=== PATIENT | male | born 2000 | race Caucasian/White ===

== ENCOUNTER 2018-11-01 23:04 | Emergency (ER) | payer BC ==
[~2018-11-01] VITALS: Ht 188 cm; Wt 81.8 kg
[2018-11-01] MEDS ORDERED: ZOFR4TAB16 PO (23:20)
[2018-11-01] MEDS ORDERED: METOCLOPRAMIDE INJ 10MG/2ML VIAL (J2765) IV ONE (23:45)
[2018-11-01] MEDS ORDERED: GI COCKTAIL 50ML BTL(HYOSCYAMINE/MAALOX/LIDOCAINE VISCOUS)(1:3:1) PO ONE (23:45)
[2018-11-01] MEDS ORDERED: ACETAMINOPHEN 500 MG TAB PO ONE (23:45)
[2018-11-01] MEDS ORDERED: NS 1,000 ML IV ONE (23:45)
[2018-11-02 00:16] LABS: BASO % 0.3 % (0.0-1.0); HEMATOCRIT 46.6 % (42.0-52.0); HEMOGLOBIN 15.8 g/dl (13.5-17.5); LYMPH # 1.1 10^3/uL (1.5-6.5); LYMPH % 16.5 % (24.0-44.0); MEAN CORPUSCULAR HEMOGLOBIN 30.4 pg (27.0-33.0); MEAN CORPUSCULAR HGB CONC 33.9 g/dl (32.0-36.5); MEAN CORPUSCULAR VOLUME 89.6 fl (80.0-96.0); MONO # 0.8 10^3/uL (0.0-0.8); MONO % 11.8 % (0.0-5.0); NEUTROPHILS # 4.9 10^3/uL (1.8-7.7); NEUTROPHILS % 71.1 % (36.0-66.0); PLATELET COUNT, AUTOMATED 165 10^3/uL (150-450); WHITE BLOOD COUNT 6.9 10^3/uL (4.0-10.0)
[2018-11-02 00:35] LABS: MONO SCRN NEGATIVE (NEGATIVE)
[2018-11-02 00:51] LABS: ALBUMIN 3.6 GM/DL (3.2-5.2); ALT/SGPT 23 U/L (12-78); BILIRUBIN,DIRECT 0.2 MG/DL (0.0-0.2); BLOOD UREA NITROGEN 17 MG/DL (7-18); CALCIUM LEVEL 8.1 MG/DL (8.5-10.1); CARBON DIOXIDE LEVEL 26 MEQ/L (21-32); CHLORIDE LEVEL 102 MEQ/L (98-107); CREATININE FOR GFR 1.37 MG/DL (0.70-1.30); GLUCOSE, FASTING 113 MG/DL (70-100); LIPASE 68 U/L (73-393); POTASSIUM SERUM 3.7 MEQ/L (3.5-5.1); SODIUM LEVEL 139 MEQ/L (136-145); TOTAL PROTEIN 7.6 GM/DL (6.4-8.2)
[2018-11-02] MEDS ORDERED: REGL10TA6 PO (01:20)
[2018-11-02 01:23] VITALS: BP 120/60
[2018-11-02] MEDS ORDERED: IBUPROFEN 600 MG TAB PO ONE (01:30)
[2018-11-03] MEDS ORDERED: CARA1TAB6 PO (12:02)
[2018-11-03] MEDS ORDERED: PROT1TAB2 PO (12:02)
[2018-11-05] MEDS ORDERED: PANT-23 PO (12:58)
[2018-11-05] MEDS ORDERED: SUCR1TAB56 PO (12:58)
[2018-11-05] MEDS ORDERED: ACET-897 PO (12:59)
[2018-11-07] MEDS ORDERED: PANT-23 PO (09:24)
[2018-11-07] MEDS ORDERED: SUCR1TAB56 PO (09:24)
== END 2018-11-02 01:39 | disposition home or self-care (01) ==
LOC: M ED 23:04
DX: R10.84 Generalized abdominal pain (principal); R50.9 Fever, unspecified; R11.2 Nausea with vomiting, unspecified
CPT/HCPCS: 80048; 80076; 83605; 83690; 85025; 86308; 87040; 96361; 96374; 99284; J2765

== ENCOUNTER 2018-11-03 09:30 | Emergency (ER) | payer BC ==
[~2018-11-03] VITALS: Ht 188 cm; Wt 82.1 kg
[~2018-11-03 09:30] MED LIST: REGL10TA6 PO; ZOFR4TAB16 PO
[2018-11-03] MEDS ORDERED: KETOROLAC 30 MG/ML VIAL (J1885) IV ONE (10:15)
[2018-11-03] MEDS ORDERED: ONDANSETRON 4MG/2ML VIAL (J2405) IV ONE (10:15)
[2018-11-03] MEDS ORDERED: PANTOPRAZOLE 40MG INJ (PROTONIX) (C9113) IV ONE (10:15)
[2018-11-03] MEDS ORDERED: NS 1,000 ML IV ONE (10:15)
[2018-11-03] MEDS ORDERED: ISOVUE-370 76% 100ML VIAL (Q9967) As Ordered ONE (10:21)
[2018-11-03 10:57] LABS: BASO % 0.4 % (0.0-1.0); HEMATOCRIT 46.2 % (42.0-52.0); HEMOGLOBIN 15.5 g/dl (13.5-17.5); LYMPH # 1.6 10^3/uL (1.5-6.5); MEAN CORPUSCULAR HEMOGLOBIN 30.6 pg (27.0-33.0); MEAN CORPUSCULAR HGB CONC 33.5 g/dl (32.0-36.5); MEAN CORPUSCULAR VOLUME 91.1 fl (80.0-96.0); MONO # 0.6 10^3/uL (0.0-0.8); NEUTROPHILS % 58.4 % (36.0-66.0); PLATELET COUNT, AUTOMATED 166 10^3/uL (150-450); RED BLOOD COUNT 5.07 10^6/uL (4.30-6.10); WHITE BLOOD COUNT 5.2 10^3/uL (4.0-10.0)
--- NOTE | 2018-11-03 11:18 | REP ---
CT ABDOMEN AND PELVIS WITH IV CONTRAST: TECHNIQUE: Axial contrast enhanced images from the lung bases to the pubic symphysis using 100 mL Isovue 370 intravenous contrast material with multiplanar reformations. Visualized lung bases demonstrate no infiltrate. The liver, spleen, adrenals, pancreas, and kidneys are unremarkable. There is no hydronephrosis. There is no abdominal aortic aneurysm. I see no significant adenopathy. There is no free air or free fluid. There is no bowel wall thickening. There is no evidence of appendicitis. No pelvic mass is seen. Urinary bladder is unremarkable. IMPRESSION: Negative CT abdomen and pelvis with no acute findings. No evidence of appendicitis. No free air or free fluid. Electronically Signed by Rodolfo Tarango MD 11/04/2018 09:04 A
[2018-11-03 11:20] LABS: ALBUMIN 3.7 GM/DL (3.2-5.2); ALT/SGPT 20 U/L (12-78); BILIRUBIN,DIRECT 0.2 MG/DL (0.0-0.2); BILIRUBIN,TOTAL 0.9 MG/DL (0.2-1.0); BLOOD UREA NITROGEN 17 MG/DL (7-18); CALCIUM LEVEL 9.2 MG/DL (8.5-10.1); CARBON DIOXIDE LEVEL 27 MEQ/L (21-32); CHLORIDE LEVEL 101 MEQ/L (98-107); CREATININE FOR GFR 1.21 MG/DL (0.70-1.30); GLUCOSE, FASTING 79 MG/DL (70-100); LIPASE 68 U/L (73-393); SODIUM LEVEL 137 MEQ/L (136-145); TOTAL PROTEIN 7.7 GM/DL (6.4-8.2)
[2018-11-03] MEDS ORDERED: GI COCKTAIL 50ML BTL(HYOSCYAMINE/MAALOX/LIDOCAINE VISCOUS)(1:3:1) PO ONE (11:30)
[2018-11-03] MEDS ORDERED: PROT1TAB2 PO (12:02)
[2018-11-03] MEDS ORDERED: CARA1TAB6 PO (12:02)
[2018-11-03 12:11] VITALS: BP 120/60
[2018-11-05] MEDS ORDERED: PANT-23 PO (12:58)
[2018-11-05] MEDS ORDERED: SUCR1TAB56 PO (12:58)
[2018-11-05] MEDS ORDERED: ACET-897 PO (12:59)
[2018-11-07] MEDS ORDERED: PANT-23 PO (09:24)
[2018-11-07] MEDS ORDERED: SUCR1TAB56 PO (09:24)
== END 2018-11-03 12:16 | disposition home or self-care (01) ==
LOC: M ED 09:30
DX: K21.0 Gastro-esophageal reflux disease with esophagitis (principal); K27.9 Peptic ulcer, site unspecified, unspecified as acute or chronic, without hemorrhage or perforation
CPT/HCPCS: 36415; 74177; 80048; 80076; 81001; 83605; 83690; 85025; 96374; 96375; 99284; C9113; J1885; J2405; Q9967

== ENCOUNTER 2019-01-29 11:23 | Day surgery (SDC) | payer BC ==
[~2019-01-29] VITALS: Ht 188 cm; Wt 82.7 kg
[~2019-01-29 11:23] MED LIST changes: +ACET-897 PO; +CARA1TAB6 PO; +PANT-23 PO; +PROT1TAB2 PO; +SUCR1TAB56 PO
[2019-01-29] MEDS ORDERED: fentaNYL 100 MCG/2 ML INJECTION (J3010) As Ordered ONE (12:43)
[2019-01-29] MEDS ORDERED: LIDOCAINE 2% INJ 100 MG/5 ML SDV (FOR ANES.) As Ordered ONE (12:46)
[2019-01-29] MEDS ORDERED: PROPOFOL 200 MG/20 ML VIAL As Ordered ONE (12:46)
--- NOTE | 2019-01-29 13:36 | ROOR ---
Patient Name: Sancho Garcia Procedure Date: 01/29/2019 1:02 PM Date of : 2000 Age: 18 Room: [facility] Gender: Male Note Status: Finalized Procedure: Upper GI endoscopy Indications: Follow-up of esophagitis Providers: Won Pizano MD Referring MD: Won Pizano MD Requesting Provider: Medicines: Monitored Anesthesia Care Complications: No immediate complications. Procedure: Pre-Anesthesia Assessment: - Prior to the procedure, a History and Physical was performed, and patient medications and allergies were reviewed. The patient is competent. The risks and benefits of the procedure and the sedation options and risks were discussed with the patient. All questions were answered and informed consent was obtained. Patient identification and proposed procedure were verified by the physician, the nurse and the anesthesiologist in the procedure room. Mental Status Examination: alert and oriented. Airway Examination: normal oropharyngeal airway and neck mobility. Respiratory Examination: clear to auscultation. CV Examination: normal. Prophylactic Antibiotics: The patient does not require prophylactic antibiotics. Prior Anticoagulants: The patient has taken no previous anticoagulant or antiplatelet agents. ASA Grade Assessment: II - A patient with mild systemic disease. After reviewing the risks and benefits, the patient was deemed in satisfactory condition to undergo the procedure. The anesthesia plan was to use monitored anesthesia care (MAC). Immediately prior to administration of medications, the patient was re-assessed for adequacy to receive sedatives. The heart rate, respiratory rate, oxygen saturations, blood pressure, adequacy of pulmonary ventilation, and response to care were monitored throughout the procedure. The physical status of the patient was re-assessed after the procedure. The Endoscope was introduced through the mouth, and advanced to the second part of duodenum. The upper GI endoscopy was accomplished without difficulty. The patient tolerated the procedure well. Findings: Mucosal changes including ringed esophagus, longitudinal furrows and white plaques were found in the middle third of the esophagus and in the lower third of the esophagus. Biopsies were obtained from the proximal and distal esophagus with cold forceps for histology of suspected eosinophilic esophagitis. Verification of patient identification for the specimen was done by the physician and nurse using the patient's name, date and medical record number. Estimated blood loss was minimal. No gross lesions were noted in the entire examined stomach. The duodenal bulb and second portion of the duodenum were normal. Impression: - Esophageal mucosal changes suspicious for eosinophilic esophagitis. Biopsied. - No gross lesions in the stomach. - Normal duodenal bulb and second portion of the duodenum. Recommendation: - Patient has a contact number available for emergencies. The signs and symptoms of potential delayed complications were discussed with the patient. Return to normal activities tomorrow. Written discharge instructions were provided to the patient. - Resume previous diet. - Continue present medications. - Await pathology results. - Telephone GI clinic for pathology results in 2 weeks. - Return to primary care physician. Won Pizano MD Won Pizano MD 01/29/2019 1:36:26 PM Electronically signed by Won Pizano MD Number of Addenda: 0 Note Initiated On: 01/29/2019 1:02 PM Estimated Blood Loss: Estimated blood loss was minimal.
[2019-01-29 13:45] VITALS: BP 119/55
[2019-02-01] MEDS ORDERED: NS 1,000 ML IV ONE (06:00)
== END 2019-01-29 14:00 | disposition home or self-care (01) ==
LOC: M OPP 11:23
PROVIDERS: ATTEND Internal Medicine Gastroenterology
DX: K22.8 Other specified diseases of esophagus (principal); K20.9 Esophagitis, unspecified
CPT/HCPCS: 43239; 88305; J3010

== ENCOUNTER → 2020-01-25 | Outpatient (CLI) | payer BC | LOC: M RAD 17:05 | PROVIDERS: ATTEND Physician Assistant Medical | DX: S60.221A Contusion of right hand, initial encounter (principal); X58.XXXA Exposure to other specified factors, initial encounter; Y92.9 Unspecified place or not applicable ==